=== PATIENT | female | born 1940 | race Caucasian/White ===

== ENCOUNTER 2017-04-21 09:29 | Day surgery (SDC) | payer MEDICARE ==
[~2017-04-21 09:29] MED LIST: ACEASPCAF PO; ACET500 PO; ACETAMINOPHEN500 MG PO; ALBU8HFA2 INH; ALBU90OI INH; AMLO5 PO; ASPI325 PO; ATOR10; ATOR10 PO; BISA5EC PO; BUDEPRION; CALCA500CH PO; CEPH500 PO; CHOL10002 PO; CIPR250 PO; CITA20 PO; CONEST.625; CYAN1000 PO; Dazidox10 MG; ESTR25VT PV; EYE VITAMIN; Excedrin Extra1 EACH PO; FAMOTIDINE; FURO40 PO; GABA300 PO; GLUCHON PO; Glucosamine &1 EACH PO; HYDACE5 PO; HYDR10 PO; HYDROXYZ; LANS30EC PO; LASIX; LISI20; LISI20 PO; LISI5 PO; LISINOPRIL; LOPE2C; LUTEIN-ZEAXANT1 EACH PO; MELA3 PO; META400; METH10; METHADONE; METO50 PO; MONT10T PO; MORP15ER PO; MORP30 PO; MULVITMINF PO; OMEP10ER; OMEP20ER PO; OMEP40CA12 PO; OXYACE5T PO; OXYC10ER PO; PANT40 PO; POTCHL20ER PO; PROC5; Roxicodone15 MG PO; SACC250C PO; SERT25; SPIR25 PO; SULTRIDS PO; Super B Comple150 MG PO; TEMA30 PO; TRAZ100 PO; UBID100 PO; VALD10; ZOLP10 PO; ZOLPIDEM; [UNRECOGNIZED DRUG - REMARK]
== END 2017-04-21 22:39 | disposition home or self-care (01) ==
LOC: RAD 09:29
PROVIDERS: Radiology Diagnostic Radiology
PROC: BR29YZZ Computerized Tomography (CT Scan) of Lumbar Spine using Other Contrast (ICD-10-PCS; principal; 2017-04-21 12:00)
DX: M51.16 Intervertebral disc disorders with radiculopathy, lumbar region (principal); M41.9 Scoliosis, unspecified; Z98.1 Arthrodesis status
CPT/HCPCS: 62304; 72132; Q9966

== ENCOUNTER → 2018-02-12 | Outpatient (CLI) | payer MEDICARE | END | disposition home or self-care (01) | LOC: LAB SHORT 12:58 → LAB 12:58 | DX: R19.7 Diarrhea, unspecified (principal) | CPT/HCPCS: 87015; 87045; 87046; 87177; 87205; 87209; 87899 ==

== ENCOUNTER → 2018-03-02 | Outpatient (CLI) | payer MEDICARE | END | disposition home or self-care (01) | LOC: LAB EV 03-01 08:04 | DX: K52.9 Noninfective gastroenteritis and colitis, unspecified (principal) | CPT/HCPCS: 87493 ==

== ENCOUNTER → 2018-11-21 | Outpatient (CLI) | payer MEDICARE ==
[2018-11-24 16:08] LABS: Campylobacter Sp Not Detected (NOT DETECT)
[2018-11-24 16:09] LABS: Adenovirus F 40/41 Not Detected (NOT DETECT); Astrovirus Not Detected (NOT DETECT); Cryptosporidium Not Detected (NOT DETECT); Cyclospora Cayetanensis Not Detected (NOT DETECT); E. Coli O157 Not Detected (NOT DETECT); Entamoeba Histolytica Not Detected (NOT DETECT); Enteroaggregative E. coli-EAEC Not Detected (NOT DETECT); Enteropathogenic E. coli-EPEC Not Detected (NOT DETECT); Enterotoxigenic E. coli-ETEC Not Detected (NOT DETECT); Giardia Lamblia Not Detected (NOT DETECT); Norovirus GI/GII Not Detected (NOT DETECT); Plesiomonas Shigelloides Not Detected (NOT DETECT); Rotavirus A Not Detected (NOT DETECT); Salmonella Sp Not Detected (NOT DETECT); Sapovirus Not Detected (NOT DETECT); Shiga Toxin-prod E. coli-STEC Not Detected (NOT DETECT); Shigella/Enteroin E. coli-EIEC Not Detected (NOT DETECT); Vibrio Cholerae Not Detected (NOT DETECT); Vibrio Sp Not Detected (NOT DETECT); Yersinia Enterocolitica Not Detected (NOT DETECT)
== END | disposition home or self-care (01) ==
LOC: LAB EV 20:35
PROVIDERS: Internal Medicine
DX: K52.9 Noninfective gastroenteritis and colitis, unspecified (principal)
CPT/HCPCS: 0097U

== ENCOUNTER 2023-01-25 12:40 | Day surgery (SDC) | payer MEDICARE ==
[~2023-01-25] VITALS: Ht 157.5 cm; Wt 73.6 kg
[~2023-01-25 12:40] MED LIST changes: +BIOTIN PLUS 5,1 EACH PO; +BUPR150ER PO; +CALCIUM 500-VI1 EAC4 PO; +CENTRUM SILVER1 EAC2; -CHOL10002 PO; +CIDAFLEX TABLE1 EAC1 PO; +EXTRA PAIN REL1 EAC2 PO; +FURO40; -Glucosamine &1 EACH PO; +MAGN84 PO; +MORPHINE ER PO; +MS CONTIN15 MG PO; +NIGHT TIME PAI1 EAC1 PO; +POTASSIUM99 M3 PO; +PROM25 PO; -Roxicodone15 MG PO; +THERA-D2000 UNIT PO; +Vitamin B Comple1 EA PO; +Vitamin B-Comp1 EACH PO; +Vitamin C100 MG PO; +ZOLP6.25 PO; +ZYLOPRIM100 M1 PO
--- NOTE | 2023-01-25 13:16 | NUR ---
01/25/23 1316 Jaimee Gonzalez PT HAS 2 POCKET KNIVES. CURRENTLY LOCKED UP ON UNIT VIA BABY STROLLER RENTAL CLERK NURSE DAMASO
[2023-01-25 14:05] VITALS: BP 105/81
== END 2023-01-25 14:23 | disposition home or self-care (01) ==
LOC: ORSCSDS 12:40
PROVIDERS: Student in an Organized Health Care Education/Training Program
PROC: 08RJ3JZ Replacement of Right Lens with Synthetic Substitute, Percutaneous Approach (ICD-10-PCS; principal; 2023-01-25 14:30)
DX: H25.13 Age-related nuclear cataract, bilateral (principal); J45.909 Unspecified asthma, uncomplicated; I50.9 Heart failure, unspecified; E78.5 Hyperlipidemia, unspecified; K21.9 Gastro-esophageal reflux disease without esophagitis; F32.A Depression, unspecified; G47.33 Obstructive sleep apnea (adult) (pediatric); I12.9 Hypertensive chronic kidney disease with stage 1 through stage 4 chronic kidney disease, or unspecified chronic kidney disease; N18.30 Chronic kidney disease, stage 3 unspecified; Z79.899 Other long term (current) drug therapy; Z79.82 Long term (current) use of aspirin
CPT/HCPCS: J2250; J3010; J7040; V2632

== ENCOUNTER 2023-02-01 10:43 | Day surgery (SDC) | payer MEDICARE ==
[~2023-02-01] VITALS: Wt 73.6 kg
[2023-02-01 12:42] VITALS: BP 143/73
--- NOTE | 2023-02-01 12:43 | NUR ---
02/01/23 1243 Alvino Rg IV REMOVED INTACT. SITE WNL.
== END 2023-02-01 12:54 | disposition home or self-care (01) ==
LOC: ORSCSDS 10:43
PROVIDERS: Student in an Organized Health Care Education/Training Program
PROC: 08RK3JZ Replacement of Left Lens with Synthetic Substitute, Percutaneous Approach (ICD-10-PCS; principal; 2023-02-01 12:30)
DX: H25.12 Age-related nuclear cataract, left eye (principal); Z96.1 Presence of intraocular lens; I12.9 Hypertensive chronic kidney disease with stage 1 through stage 4 chronic kidney disease, or unspecified chronic kidney disease; N18.4 Chronic kidney disease, stage 4 (severe); F32.A Depression, unspecified; Z79.899 Other long term (current) drug therapy; J45.909 Unspecified asthma, uncomplicated
CPT/HCPCS: J2250; J3010; J7040; V2632

== ENCOUNTER → 2023-06-09 | Outpatient (CLI) | payer MEDICARE | END | disposition home or self-care (01) | LOC: LAB 18:39 → LAB SHORT 18:39 | DX: R30.0 Dysuria (principal) | CPT/HCPCS: 87086 ==

== ENCOUNTER → 2023-06-17 | Outpatient (CLI) | payer MEDICARE ==
[2023-06-17 17:09] LABS: Adenovirus F 40/41 Not Detected (NOT DETECT); Astrovirus Not Detected (NOT DETECT); Campylobacter Sp Not Detected (NOT DETECT); Cryptosporidium Not Detected (NOT DETECT); Cyclospora Cayetanensis Not Detected (NOT DETECT); E. Coli O157 Not Detected (NOT DETECT); Entamoeba Histolytica Not Detected (NOT DETECT); Enteroaggregative E. coli-EAEC Not Detected (NOT DETECT); Enteropathogenic E. coli-EPEC Not Detected (NOT DETECT); Enterotoxigenic E. coli-ETEC Not Detected (NOT DETECT); Giardia Lamblia Not Detected (NOT DETECT); Norovirus GI/GII Not Detected (NOT DETECT); Plesiomonas Shigelloides Not Detected (NOT DETECT); Rotavirus A Not Detected (NOT DETECT); Salmonella Sp Not Detected (NOT DETECT); Sapovirus Not Detected (NOT DETECT); Shiga Toxin-prod E. coli-STEC Not Detected (NOT DETECT); Shigella/Enteroin E. coli-EIEC Not Detected (NOT DETECT); Vibrio Cholerae Not Detected (NOT DETECT); Vibrio Sp Not Detected (NOT DETECT); Yersinia Enterocolitica Not Detected (NOT DETECT)
[2023-06-21 12:07] LABS: CALPROTECTIN,FECAL 26 ug/g (<=49)
[2023-06-21 12:12] LABS: PANCREATIC ELASTASE,FECAL 198 ug/g (>=100)
== END | disposition home or self-care (01) ==
LOC: LAB SHORT 14:36 → LAB 14:36
PROVIDERS: Physician Assistant Medical
DX: K52.9 Noninfective gastroenteritis and colitis, unspecified (principal)
CPT/HCPCS: 82653; 83993; 87507

== ENCOUNTER 2023-08-17 10:28 | Inpatient (IN) | payer MEDICARE ==
[~2023-08-17] VITALS: Ht 157.5 cm; Wt 71.9 kg
[~2023-08-17 10:28] MED LIST changes: +FURO20 PO; -FURO40
[2023-08-17] MEDS ORDERED: PANTOPRAZOLE SO40 M2 PO (10:47)
[2023-08-17] MEDS ORDERED: ZOLOFT10013 PO (10:47)
[2023-08-17 11:20] LABS: BASOPHILS ABSOLUTE AUTO 0.01 K/mm3 (0.00-0.23); BASOPHILS PERCENT AUTO 0 % (0-2); EOSINOPHILS ABSOLUTE AUTO 0.04 K/mm3 (0.00-0.68); EOSINOPHILS PERCENT AUTO 1 % (0-6); Hematocrit 35.5 % (33.0-51.0); Hemoglobin 12.1 g/dL (11.5-16.0); IMMATURE GRAN ABSOLUTE AUTO 0.03 K/mm3 (0.00-0.10); IMMATURE GRAN PERCENT AUTO 1 % (0-1); LYMPHOCYTES PERCENT AUTO 15 % (21-46); MONOCYTES ABSOLUTE AUTO 0.29 K/mm3 (0.16-1.47); MONOCYTES PERCENT AUTO 4 % (4-13); Mean Corpuscular HGB 27.1 pg (26.0-34.0); Mean Corpuscular HGB Conc 34.1 g/dL (31.5-36.5); Mean Corpuscular Volume 79 fL (80-100); Mean Platelet Volume 10.2 fL (9.1-12.4); NEUTROPHILS PERCENT AUTO 79 % (41-73); Platelet Count 168 K/mm3 (150-400); RDW Coefficient Variation 13.7 % (11.7-14.2); RDW Standard Deviation 39.7 fL (35.1-46.3); Red Blood Cell Count 4.47 M/mm3 (3.80-5.20); White Blood Cell Count 6.57 K/mm3 (4.00-11.30)
[2023-08-17 11:36] LABS: Albumin, Blood 3.2 g/dL (3.4-5.0); Albumin/Globulin Ratio 0.8 (0.8-1.8); Bilirubin, Total 0.6 mg/dL (0.1-1.0); Calcium, Blood 8.6 mg/dL (8.5-10.1); Creatinine, Blood 2.13 mg/dL (0.40-1.00); Globulin, Blood 3.9 g/dL (2.2-4.0); Potassium, Blood 2.4 mmol/L (3.5-5.5); Total Protein, Blood 7.1 g/dL (6.4-8.2)
[2023-08-17] MEDS ORDERED: NS 1,000 ML IV SCH ×2 (11:40→22:20)
[2023-08-17] MEDS ORDERED: Potassium Chloride 40 MEQ IV SCH (11:40)
[2023-08-17] MEDS ORDERED: Potassium Chloride 40 MEQ in NS 250 ML IV STA (11:42)
[2023-08-17] MEDS ORDERED: Metoclopramide HCl 5MG / ML 2ML Vial IV PRN (15:00)
[2023-08-17] MEDS ORDERED: Furosemide 40 MG Tab PO PRN (15:10)
[2023-08-17] MEDS ORDERED: Albuterol HFA200 ACT/6.7 GM INH INH PRN (15:15)
[2023-08-17 16:43] VITALS: BP 126/73
[2023-08-17] MEDS ORDERED: Acetaminophen 500MG/DP-Hydram 25MG HCL 1 Tab PO PRN (16:55)
[2023-08-17 17:19] LABS: Adenovirus F 40/41 Not Detected (NOT DETECT); Astrovirus Not Detected (NOT DETECT); Campylobacter Sp Not Detected (NOT DETECT); Cryptosporidium Not Detected (NOT DETECT); Cyclospora Cayetanensis Not Detected (NOT DETECT); E. Coli O157 Not Detected (NOT DETECT); Entamoeba Histolytica Not Detected (NOT DETECT); Enteroaggregative E. coli-EAEC Not Detected (NOT DETECT); Enteropathogenic E. coli-EPEC Detected (NOT DETECT); Enterotoxigenic E. coli-ETEC Not Detected (NOT DETECT); Giardia Lamblia Not Detected (NOT DETECT); Norovirus GI/GII Not Detected (NOT DETECT); Plesiomonas Shigelloides Not Detected (NOT DETECT); Rotavirus A Not Detected (NOT DETECT); Salmonella Sp Not Detected (NOT DETECT); Sapovirus Not Detected (NOT DETECT); Shiga Toxin-prod E. coli-STEC Not Detected (NOT DETECT); Shigella/Enteroin E. coli-EIEC Not Detected (NOT DETECT); Vibrio Cholerae Not Detected (NOT DETECT); Vibrio Sp Not Detected (NOT DETECT); Yersinia Enterocolitica Not Detected (NOT DETECT)
[2023-08-17 17:49] LABS: Albumin, Blood 3.2 g/dL (3.4-5.0); Anion Gap 10 mmol/L (3-11); Blood Urea Nitrogen 59 mg/dL (8-24); Bun/Creatinine Ratio 30.7 (12.0-20.0); CO2, Blood 26 mmol/L (21-32); Calcium, Blood 8.5 mg/dL (8.5-10.1); Chloride, Blood 103 mmol/L (98-108); Creatinine, Blood 1.92 mg/dL (0.40-1.00); Glomerular Filtration Rate 26 (60-); Glucose, Blood 114 mg/dL (70-99); Phosphorus, Blood 3.9 mg/dL (2.5-4.9); Potassium, Blood 3.2 mmol/L (3.5-5.5); Sodium, Blood 136 mmol/L (136-145)
--- NOTE | 2023-08-17 18:02 | NUR ---
ADMIT SUMMARY: PT ADMITTED TO ROOM 362 AT 1648. PT ARRIVED VIA GURNEY, A/O X 4, STANDBY ASSIST TX TO BED. PT REFUSED TO CHANGE INTO HOSPITAL GOWN. EDUCATED PT ON HOSPITAL PROTOCOL TO DO SKIN CHECK FOR WOUNDS, RASHES, SOURCES OF INFECTION. PT CONTINUED TO REFUSE TO CHANGE OUT OF HER CLOTHING SHE ARRIVED IN FOR A SKIN CHECK. PT EDUCATED ON ADMIT PROCESS, FALL PRECAUTIONS, MEDICAL FLOOR STANDARD CARE, CALL LIGHT, BED ALARM. PT C/O BEING HUNGRY. DISCUSSED PRESCRIBED DIET OF CLEAR LIQUIDS AND SHE AGREED TO DIET ORDER AND SHE WAS GIVEN SOME JELLO AND ICE WATER. WHEN DISCUSSING HOME MEDICATIONS. PT REPORTED SHE TAKES POTASSIUM CITRATE NEEDED WHEN SHE TAKES HER PRN LASIX. I CLARIFIED WITH PT AND ASKED HER WHO PRESCRIBED POTASSIUM CITRATE AND SHE STATED "NO ONE I GOT IT AT THE STORE." I FURTHER CLARIFIED AND ASKED WHAT IT LOOKED LIKE AND SHE STATED "IT COMES IN A GREAT BIG BOTTLE." PT EDUCATED ON DIFFERENCES OF POTASSIUM FORMS AND ADVISED HER TO STOP TAKING POTASSIUM CITRATE. PT V/U. MED RECONCILIATION COMPLETED. PT HAD IV POTASSIUM RESTARTED IT WAS STOPPED ON TRANSFER TO MEDICAL FLOOR. IT IS RUNNING SLOW DUE TO IT BURNING HER ARM. RATE IS AT 30 ML PER HOUR. WHEN LAB CAME UP THEY NEEDED TO DRAW FOR SEND OUT LABS THAT GET PICKED UP AT 1830. POTASSIUM CAME BACK AT 3.2 BUT PT STILL GETTING POTASSIUM INFUSION WITH APPROX 67 MLS STILL NEEDING TO INFUSE. NEXT DRAW WILL BE AT 2300.
[2023-08-17] MEDS ORDERED: ZOLPIDEM TART6.25 MG PO (19:23)
--- NOTE | 2023-08-17 19:26 | NUR ---
DR. HAWLEY NOTIFIED PT STOOL SAMPLE TESTED POSITIVE FOR E.COLI. NO NEW ORDERS.
[2023-08-17] MEDS ORDERED: PEPCID40 MG PO (19:27)
[2023-08-17 20:10] VITALS: BP 141/63
[2023-08-17] MEDS ORDERED: ACET500 PO (20:30)
[2023-08-17] MEDS ORDERED: Gabapentin 100 MG Cap PO SCH (21:00)
[2023-08-17] MEDS ORDERED: Ketorolac Tromethamine 15mg Vial IV ONE (21:00)
[2023-08-17] MEDS ORDERED: Lactobacil 2-S.Thermo-Bifido 1 1 Cap PO SCH (21:00)
[2023-08-17] MEDS ORDERED: Azithromycin 500 MG in NS 250 ML IV SCH (21:00)
[2023-08-17] MEDS ORDERED: Pantoprazole Sodium 40 MG Tab PO SCH (21:00)
[2023-08-17] MEDS ORDERED: Acetaminophen 500 MG Tab PO PRN (21:00)
[2023-08-17 23:46] LABS: Albumin, Blood 2.9 g/dL (3.4-5.0); Anion Gap 10 mmol/L (3-11); Blood Urea Nitrogen 51 mg/dL (8-24); Bun/Creatinine Ratio 31.9 (12.0-20.0); CO2, Blood 25 mmol/L (21-32); Calcium, Blood 8.1 mg/dL (8.5-10.1); Chloride, Blood 105 mmol/L (98-108); Glomerular Filtration Rate 32 (60-); Glucose, Blood 118 mg/dL (70-99); Phosphorus, Blood 3.5 mg/dL (2.5-4.9); Potassium, Blood 2.6 mmol/L (3.5-5.5); Sodium, Blood 137 mmol/L (136-145)
--- NOTE | 2023-08-18 00:50 | NUR ---
CALLED HOSPITALIST AND REPORTED POTASSIUM OF 2.6. HOSPITALIST STATED WILL REVIEW CHART AND PLACE ORDERS.
[2023-08-18] MEDS ORDERED: Potassium Chloride 40 MEQ in NS 250 ML IV ONE (00:55)
[2023-08-18 05:09] VITALS: BP 124/68
[2023-08-18 05:56] LABS: Hematocrit 31.4 % (33.0-51.0); Hemoglobin 10.5 g/dL (11.5-16.0)
--- NOTE | 2023-08-18 05:57 | NUR ---
SHIFT SUMMARY: JER IS A&OX4. VSS, NO ACUTE EVENTS OVERNIGHT. PT DID HAVE ONE EPISODE OF DIARRHEA THIS SHIFT, DENIES ANY DIFFICULTY WITH URINATION. IV O L AC PATENT. SHE IS TOLERATING CLEAR LIQUIDS WELL. PT STATES SHE IS HOPEFUL SHE WILL BE DISCHARGED HOME TODAY. SHE IS A ONE-PERSON ASSIST TO THE BATHROOM, PT HAS DECLINED TO USE HER CANE THAT SHE BROUGHT FROM HOME AND PREFERS TO FURNITURE SURF. SHE IS LYING IN BED WITH THE CALL LIGHT IN REACH. WILL GIVE REPORT TO DAY SHIFT RN.
[2023-08-18 06:18] LABS: Magnesium, Blood 2.2 mg/dL (1.6-2.4); Thyroid Stimulating Hormone 0.902 uIU/mL (0.360-4.800); Uric Acid, Blood 9.3 mg/dL (2.6-6.0)
[2023-08-18 06:19] LABS: Albumin, Blood 2.9 g/dL (3.4-5.0); Albumin/Globulin Ratio 0.9 (0.8-1.8); Bilirubin, Total 0.3 mg/dL (0.1-1.0); Bun/Creatinine Ratio 30.3 (12.0-20.0); Calcium, Blood 8.3 mg/dL (8.5-10.1); Creatinine, Blood 1.52 mg/dL (0.40-1.00); Globulin, Blood 3.2 g/dL (2.2-4.0); Phosphorus, Blood 3.5 mg/dL (2.5-4.9); Potassium, Blood 3.3 mmol/L (3.5-5.5); Total Protein, Blood 6.1 g/dL (6.4-8.2)
[2023-08-18 07:38] VITALS: BP 142/76
[2023-08-18] MEDS ORDERED: Montelukast Sodium 10 MG Tab PO SCH (09:00)
[2023-08-18] MEDS ORDERED: Spironolactone 25 MG Tab PO SCH (09:00)
[2023-08-18] MEDS ORDERED: Allopurinol 100 MG Tab PO SCH (09:00)
[2023-08-18] MEDS ORDERED: Sertraline HCl 100 MG Tab PO SCH (09:00)
[2023-08-18] MEDS ORDERED: Lisinopril 5 MG Tab PO SCH (09:00)
[2023-08-18] MEDS ORDERED: Heparin Sodium,Porcine 5,000 UNIT/0.5 ML SDV SC SCH (09:00)
[2023-08-18] MEDS ORDERED: Potassium Chloride 20 MEQ TabCR PO ONE (09:00)
[2023-08-18] MEDS ORDERED: NS 1,000 ML IV SCH (10:20)
[2023-08-18 11:40] LABS: Albumin, Blood 3.1 g/dL (3.4-5.0); Anion Gap 10 mmol/L (3-11); Blood Urea Nitrogen 38 mg/dL (8-24); CO2, Blood 23 mmol/L (21-32); Calcium, Blood 8.4 mg/dL (8.5-10.1); Chloride, Blood 112 mmol/L (98-108); Creatinine, Blood 1.31 mg/dL (0.40-1.00); Glomerular Filtration Rate 41 (60-); Glucose, Blood 116 mg/dL (70-99); Phosphorus, Blood 2.5 mg/dL (2.5-4.9); Potassium, Blood 3.2 mmol/L (3.5-5.5); Sodium, Blood 142 mmol/L (136-145)
[2023-08-18] MEDS ORDERED: Potassium Chl 20MEQ/Water100ML 100 ML IV STA (14:32)
[2023-08-18 15:06] VITALS: BP 122/68
--- NOTE | 2023-08-18 16:48 | NUR ---
SHIFT SUMMARY Pt remains A&Ox3 this shift. VSS. Denies pain. Resp even nonlabored on RA. Loose stools noted this shift. IV K+ infusing for repeat low K+ via power glide LUE. No acute events. Pain and safety maintained. Will continue to monitor and document any changes.
[2023-08-18 17:28] LABS: Albumin, Blood 3.2 g/dL (3.4-5.0); Anion Gap 8 mmol/L (3-11); Blood Urea Nitrogen 33 mg/dL (8-24); Bun/Creatinine Ratio 27.3 (12.0-20.0); CO2, Blood 23 mmol/L (21-32); Calcium, Blood 8.4 mg/dL (8.5-10.1); Chloride, Blood 112 mmol/L (98-108); Creatinine, Blood 1.21 mg/dL (0.40-1.00); Glomerular Filtration Rate 45 (60-); Glucose, Blood 84 mg/dL (70-99); Phosphorus, Blood 2.5 mg/dL (2.5-4.9); Potassium, Blood 3.4 mmol/L (3.5-5.5); Sodium, Blood 140 mmol/L (136-145)
[2023-08-19 05:11] VITALS: BP 163/73
[2023-08-19 05:39] LABS: Hematocrit 30.6 % (33.0-51.0); Hemoglobin 9.8 g/dL (11.5-16.0)
[2023-08-19 06:02] LABS: Albumin, Blood 2.7 g/dL (3.4-5.0); Anion Gap 7 mmol/L (3-11); Blood Urea Nitrogen 23 mg/dL (8-24); Bun/Creatinine Ratio 21.5 (12.0-20.0); CO2, Blood 23 mmol/L (21-32); Calcium, Blood 8.4 mg/dL (8.5-10.1); Chloride, Blood 120 mmol/L (98-108); Creatinine, Blood 1.07 mg/dL (0.40-1.00); Glomerular Filtration Rate 52 (60-); Glucose, Blood 107 mg/dL (70-99); Phosphorus, Blood 2.8 mg/dL (2.5-4.9); Potassium, Blood 3.7 mmol/L (3.5-5.5); Sodium, Blood 146 mmol/L (136-145)
[2023-08-19] MEDS ORDERED: NS 1,000 ML IV SCH (06:05)
--- NOTE | 2023-08-19 06:12 | NUR ---
191 Assumed care of pt, bedside report completed. Shift plan of care reviewed with pt and all questions answered. Pt with uneventful shift tonight, appears to have slept well. Pt happy for the rest as she has not slept well in several days per report. This AM labs show improved K at 3.7, reported to pt and she is pleased. Pt up tp BR with SBA, david well. Second liter of IVF almost completed. WIll saline lock IV after this liter finished being infused per MD order. Please see full assessment for additional details. Pt hoping for DC today. No additional complaints or concerns at this time, will continue to monitor.
[2023-08-19 07:36] VITALS: BP 140/79
[2023-08-19] MEDS ORDERED: Potassium Chloride 20 MEQ TabCR PO SCH (08:00)
[2023-08-19] MEDS ORDERED: D5W-1/2NS 1,000 ML IV SCH (08:25)
[2023-08-19] MEDS ORDERED: Spironolactone 25 MG Tab PO SCH (09:00)
[2023-08-19] MEDS ORDERED: Banana Flakes/Tos 1 EA Powder Pack PO SCH (11:25)
[2023-08-19] MEDS ORDERED: Gabapentin 300 MG Cap PO SCH (14:00)
[2023-08-19 14:15] LABS: BASOPHILS ABSOLUTE AUTO 0.01 K/mm3 (0.00-0.23); BASOPHILS PERCENT AUTO 0 % (0-2); EOSINOPHILS ABSOLUTE AUTO 0.05 K/mm3 (0.00-0.68); EOSINOPHILS PERCENT AUTO 2 % (0-6); Hematocrit 31.1 % (33.0-51.0); IMMATURE GRAN ABSOLUTE AUTO 0.01 K/mm3 (0.00-0.10); IMMATURE GRAN PERCENT AUTO 0 % (0-1); LYMPHOCYTES ABSOLUTE AUTO 0.68 K/mm3 (0.84-5.20); LYMPHOCYTES PERCENT AUTO 21 % (21-46); MONOCYTES ABSOLUTE AUTO 0.15 K/mm3 (0.16-1.47); MONOCYTES PERCENT AUTO 5 % (4-13); Mean Corpuscular HGB Conc 32.2 g/dL (31.5-36.5); Mean Platelet Volume 9.6 fL (9.1-12.4); NEUTROPHILS ABSOLUTE AUTO 2.35 K/mm3 (1.96-9.15); NEUTROPHILS PERCENT AUTO 72 % (41-73); Platelet Count 116 K/mm3 (150-400); RDW Coefficient Variation 14.1 % (11.7-14.2); RDW Standard Deviation 43.7 fL (35.1-46.3); White Blood Cell Count 3.25 K/mm3 (4.00-11.30)
[2023-08-19 14:19] LABS: Mean Corpuscular Volume 84 fL (80-100)
[2023-08-19 14:22] LABS: Albumin, Blood 2.8 g/dL (3.4-5.0); Albumin/Globulin Ratio 0.9 (0.8-1.8); Bilirubin, Total 0.2 mg/dL (0.1-1.0); Bun/Creatinine Ratio 18.7 (12.0-20.0); Calcium, Blood 8.1 mg/dL (8.5-10.1); Creatinine, Blood 0.96 mg/dL (0.40-1.00); Globulin, Blood 3.1 g/dL (2.2-4.0); Potassium, Blood 3.5 mmol/L (3.5-5.5); Total Protein, Blood 5.9 g/dL (6.4-8.2)
[2023-08-19 15:31] VITALS: BP 136/81
[2023-08-19] MEDS ORDERED: Darbepoetin Alfa in Polysorbat 25 MCG/0.42 ML Syringe SC SCH (16:00)
--- NOTE | 2023-08-19 17:49 | NUR ---
NO ACUTE CHANGES THIS SHIFT. PT CONTINUES TO HAVE WATERY DIARRHEA. ABLE TO MAKE NEEDS KNOWN. PLAN TO DISCHARGE TOMORROW PENDING LAB RESULTS. INDEPENDENT IN THE ROOM, PER DR. HERNANDEZ. STOP FLUIDS AT 1200 TODAY. PT PO INTAKE AT 100% ON CLEAR LIQUID DIET.
[2023-08-19 19:28] VITALS: BP 159/76
[2023-08-20 04:59] VITALS: BP 139/64
[2023-08-20 06:42] LABS: BASOPHILS ABSOLUTE AUTO 0.01 K/mm3 (0.00-0.23); BASOPHILS PERCENT AUTO 0 % (0-2); EOSINOPHILS ABSOLUTE AUTO 0.07 K/mm3 (0.00-0.68); EOSINOPHILS PERCENT AUTO 2 % (0-6); Hematocrit 30.4 % (33.0-51.0); Hemoglobin 9.8 g/dL (11.5-16.0); IMMATURE GRAN ABSOLUTE AUTO 0.01 K/mm3 (0.00-0.10); IMMATURE GRAN PERCENT AUTO 0 % (0-1); LYMPHOCYTES PERCENT AUTO 24 % (21-46); MONOCYTES ABSOLUTE AUTO 0.16 K/mm3 (0.16-1.47); MONOCYTES PERCENT AUTO 5 % (4-13); Mean Corpuscular HGB Conc 32.2 g/dL (31.5-36.5); Mean Corpuscular Volume 84 fL (80-100); Mean Platelet Volume 9.7 fL (9.1-12.4); NEUTROPHILS ABSOLUTE AUTO 2.28 K/mm3 (1.96-9.15); NEUTROPHILS PERCENT AUTO 69 % (41-73); Platelet Count 117 K/mm3 (150-400); RDW Coefficient Variation 14.2 % (11.7-14.2); RDW Standard Deviation 43.3 fL (35.1-46.3); Red Blood Cell Count 3.63 M/mm3 (3.80-5.20); White Blood Cell Count 3.33 K/mm3 (4.00-11.30)
[2023-08-20 07:05] LABS: Albumin, Blood 2.8 g/dL (3.4-5.0); Albumin/Globulin Ratio 0.9 (0.8-1.8); Bilirubin, Total 0.2 mg/dL (0.1-1.0); Bun/Creatinine Ratio 13.3 (12.0-20.0); Calcium, Blood 8.5 mg/dL (8.5-10.1); Creatinine, Blood 0.98 mg/dL (0.40-1.00); Globulin, Blood 3.1 g/dL (2.2-4.0); Phosphorus, Blood 2.2 mg/dL (2.5-4.9); Potassium, Blood 3.5 mmol/L (3.5-5.5); Total Protein, Blood 5.9 g/dL (6.4-8.2)
[2023-08-20 07:36] VITALS: BP 143/96
[2023-08-20] MEDS ORDERED: Dextrose 5% 1,000 ML IV SCH (07:40)
[2023-08-20 13:21] LABS: C DIFFICILE DNA NEGATIVE (Negative)
[2023-08-20 14:28] VITALS: BP 144/71
[2023-08-20] MEDS ORDERED: D5W-1/2NS KCl 10mEq 1,000 ML IV SCH (18:50)
[2023-08-20 19:56] VITALS: BP 132/64
[2023-08-21 04:50] VITALS: BP 144/71
[2023-08-21] MEDS ORDERED: NS 250 ML IV PRN (05:05)
[2023-08-21 05:56] LABS: BASOPHILS ABSOLUTE AUTO 0.02 K/mm3 (0.00-0.23); BASOPHILS PERCENT AUTO 1 % (0-2); EOSINOPHILS ABSOLUTE AUTO 0.07 K/mm3 (0.00-0.68); EOSINOPHILS PERCENT AUTO 2 % (0-6); Hematocrit 30.3 % (33.0-51.0); Hemoglobin 9.9 g/dL (11.5-16.0); IMMATURE GRAN ABSOLUTE AUTO 0.01 K/mm3 (0.00-0.10); IMMATURE GRAN PERCENT AUTO 0 % (0-1); LYMPHOCYTES ABSOLUTE AUTO 0.99 K/mm3 (0.84-5.20); LYMPHOCYTES PERCENT AUTO 30 % (21-46); MONOCYTES ABSOLUTE AUTO 0.15 K/mm3 (0.16-1.47); MONOCYTES PERCENT AUTO 5 % (4-13); Mean Corpuscular HGB Conc 32.7 g/dL (31.5-36.5); Mean Corpuscular Volume 83 fL (80-100); Mean Platelet Volume 9.4 fL (9.1-12.4); NEUTROPHILS ABSOLUTE AUTO 2.11 K/mm3 (1.96-9.15); NEUTROPHILS PERCENT AUTO 63 % (41-73); Platelet Count 123 K/mm3 (150-400); RDW Coefficient Variation 14.3 % (11.7-14.2); RDW Standard Deviation 43.1 fL (35.1-46.3); Red Blood Cell Count 3.66 M/mm3 (3.80-5.20); White Blood Cell Count 3.35 K/mm3 (4.00-11.30)
--- NOTE | 2023-08-21 06:05 | NUR ---
SHIFT SUMMARY NO ACUTE EVENTS DURING THIS SHIFT. PT.REPORTS FOUR TO FIVE LOOSE STOOLS DURING THIS SHIFT. PT. STATES NEEDS FIBER TO START HARDENING THE STOOLS OR WILL GO HOME AND GET IT OTC. INFUSING SECOND BAG OF THE ORDERED IV FLUIDS. WILL HANDOFF TO THE INCOMING SHIFT NURSE, CALL LIGHT IN REACH.
[2023-08-21 06:26] LABS: Albumin, Blood 2.9 g/dL (3.4-5.0); Bilirubin, Total 0.3 mg/dL (0.1-1.0); Bun/Creatinine Ratio 10.8 (12.0-20.0); Calcium, Blood 8.5 mg/dL (8.5-10.1); Creatinine, Blood 1.02 mg/dL (0.40-1.00); Phosphorus, Blood 3.1 mg/dL (2.5-4.9); Potassium, Blood 3.3 mmol/L (3.5-5.5); Total Protein, Blood 5.9 g/dL (6.4-8.2)
--- NOTE | 2023-08-21 06:32 | NUR ---
[facility] LAB VALUE RECEIVED AT 0632: MG 1.[address]NEW ALONZO.
[2023-08-21] MEDS ORDERED: Potassium Chloride 20 MEQ TabCR PO ONE ×2 (07:05→12:00)
[2023-08-21] MEDS ORDERED: Magnesium Sulf 2 GM/Water 50ML 50 ML IV ONE (07:15)
[2023-08-21 07:29] VITALS: BP 155/71
[2023-08-21 08:15] LABS: ALDOSTERONE 19.6 ng/dL; ALDOSTERONE/RENINACTIVITY CALC 2.2 ratio (<=25.0); RENIN ACTIVITY 9.1 ng/mL/hr
[2023-08-21] MEDS ORDERED: SPIR25 PO (13:42)
[2023-08-21] MEDS ORDERED: MIDO5 PO (13:43)
[2023-08-21] MEDS ORDERED: MAGNESIUM OXID500 MG PO (13:45)
[2023-08-21] MEDS ORDERED: POTCHL20ER PO (13:45)
[2023-08-21] MEDS ORDERED: BANATROL PLUS1 EAC1 PO (13:45)
--- NOTE | 2023-08-21 15:48 | NUR ---
DISCHARGE SUMMARY PATIENT DISCHARGED THIS SHIFT, IV REMOVED WITHOUT COMPLICATIONS. DISCHARGE PACKET GIVEN AND REVIEWED, QUESTIONS ANSWERED, VERBALIZED UNDERSTANDING. MEDS FAXED TO [facility]. NEIGHBOR TO DRIVE PATIENT HOME.
== END 2023-08-21 14:30 | disposition home health service (06) | DRG 683 ==
LOC: ER 10:28 → MEDS 10:29 → ENPENDDIS 08-19 09:44 → MEDS 08-21 14:30
PROVIDERS: Emergency Medicine; Internal Medicine; Internal Medicine Nephrology; ADMIT Family Medicine
DX: N17.9 Acute kidney failure, unspecified (principal); A09 Infectious gastroenteritis and colitis, unspecified; I13.0 Hypertensive heart and chronic kidney disease with heart failure and stage 1 through stage 4 chronic kidney disease, or unspecified chronic kidney disease; I50.32 Chronic diastolic (congestive) heart failure; D61.818 Other pancytopenia; E87.1 Hypo-osmolality and hyponatremia; E87.0 Hyperosmolality and hypernatremia; K58.0 Irritable bowel syndrome with diarrhea; E87.6 Hypokalemia; I35.0 Nonrheumatic aortic (valve) stenosis; E83.42 Hypomagnesemia; J45.909 Unspecified asthma, uncomplicated; G47.00 Insomnia, unspecified; F32.A Depression, unspecified; B96.20 Unspecified Escherichia coli [E. coli] as the cause of diseases classified elsewhere; N18.30 Chronic kidney disease, stage 3 unspecified; K21.9 Gastro-esophageal reflux disease without esophagitis; Z90.710 Acquired absence of both cervix and uterus; Z98.890 Other specified postprocedural states; Z79.811 Long term (current) use of aromatase inhibitors; Z79.899 Other long term (current) drug therapy; Z88.8 Allergy status to other drugs, medicaments and biological substances; D63.1 Anemia in chronic kidney disease; M54.9 Dorsalgia, unspecified; G89.29 Other chronic pain; Z90.49 Acquired absence of other specified parts of digestive tract; Z96.653 Presence of artificial knee joint, bilateral; Z79.891 Long term (current) use of opiate analgesic
CPT/HCPCS: 36415; 74177; 80053; 80069; 82088; 82533; 83690; 83735; 84100; 84244; 84443; 84550; 85014; 85018; 85025; 87493; 87507; 94760; 96361; 96367; 96372; 96376; 97110; 97116; 97161; 97165; 97530; A9270; C1751; G0378; J0456; J0881; J1644; J3475; J3480; J7030; J7042; J7050; J7070; Q9967

== ENCOUNTER 2023-11-29 09:26 | Emergency (ER) | payer MEDICARE ==
[~2023-11-29] VITALS: Ht 157.5 cm; Wt 74.8 kg
[~2023-11-29 09:26] MED LIST changes: +BANATROL PLUS1 EAC1 PO; +MAGNESIUM OXID500 MG PO; +MIDO5 PO; +PANTOPRAZOLE SO40 M2 PO; +PEPCID40 MG PO; +ZOLOFT10013 PO; +ZOLPIDEM TART6.25 MG PO
[2023-11-29 10:20] LABS: BASOPHILS ABSOLUTE AUTO 0.02 K/mm3 (0.00-0.23); BASOPHILS PERCENT AUTO 0 % (0-2); EOSINOPHILS ABSOLUTE AUTO 0.03 K/mm3 (0.00-0.68); EOSINOPHILS PERCENT AUTO 1 % (0-6); Hematocrit 38.2 % (33.0-51.0); Hemoglobin 12.4 g/dL (11.5-16.0); IMMATURE GRAN ABSOLUTE AUTO 0.01 K/mm3 (0.00-0.10); IMMATURE GRAN PERCENT AUTO 0 % (0-1); LYMPHOCYTES ABSOLUTE AUTO 0.85 K/mm3 (0.84-5.20); LYMPHOCYTES PERCENT AUTO 17 % (21-46); MONOCYTES ABSOLUTE AUTO 0.17 K/mm3 (0.16-1.47); MONOCYTES PERCENT AUTO 3 % (4-13); Mean Corpuscular HGB 26.9 pg (26.0-34.0); Mean Corpuscular HGB Conc 32.5 g/dL (31.5-36.5); Mean Corpuscular Volume 83 fL (80-100); NEUTROPHILS ABSOLUTE AUTO 3.89 K/mm3 (1.96-9.15); NEUTROPHILS PERCENT AUTO 78 % (41-73); RDW Coefficient Variation 14.1 % (11.7-14.2); RDW Standard Deviation 42.2 fL (35.1-46.3); Red Blood Cell Count 4.61 M/mm3 (3.80-5.20); White Blood Cell Count 4.97 K/mm3 (4.00-11.30)
[2023-11-29 10:45] LABS: Mean Platelet Volume 10.5 fL (9.1-12.4)
[2023-11-29 10:48] LABS: Albumin, Blood 3.6 g/dL (3.4-5.0); Albumin/Globulin Ratio 0.9 (0.8-1.8); Bilirubin, Total 0.5 mg/dL (0.1-1.0); Bun/Creatinine Ratio 8.7 (12.0-20.0); Calcium, Blood 9.9 mg/dL (8.5-10.1); Creatinine, Blood 0.81 mg/dL (0.40-1.00); Potassium, Blood 3.3 mmol/L (3.5-5.5); Total Protein, Blood 7.6 g/dL (6.4-8.2)
[2023-11-29] MEDS ORDERED: NS 1,000 ML IV SCH ×2 (11:05→14:10)
[2023-11-29 12:01] LABS: Influenza A, PCR NEGATIVE (NEGATIVE); Influenza B, PCR NEGATIVE (NEGATIVE); Resp Syncytial Virus, PCR NEGATIVE (NEGATIVE); SARS-Cov-2 (COVID-19) PCR, MMC NEGATIVE (NEGATIVE)
[2023-11-29] MEDS ORDERED: Lisinopril 5 MG Tab PO ONE (12:30)
[2023-11-29 14:15] VITALS: BP 154/79
[2024-01-02] MEDS ORDERED: OMEP20ER (13:13)
== END 2023-11-29 16:38 | disposition home or self-care (01) ==
LOC: ER 09:26
PROVIDERS: Physician Assistant
DX: R07.89 Other chest pain (principal); K52.9 Noninfective gastroenteritis and colitis, unspecified; E86.0 Dehydration; K21.9 Gastro-esophageal reflux disease without esophagitis; J45.909 Unspecified asthma, uncomplicated; I13.0 Hypertensive heart and chronic kidney disease with heart failure and stage 1 through stage 4 chronic kidney disease, or unspecified chronic kidney disease; I50.30 Unspecified diastolic (congestive) heart failure; N18.30 Chronic kidney disease, stage 3 unspecified; Z79.899 Other long term (current) drug therapy; Z88.8 Allergy status to other drugs, medicaments and biological substances
CPT/HCPCS: 0241U; 71046; 80053; 83605; 83735; 83880; 84484; 85025; 93005; 93010; 96360; 96361; 99285-25; A9270; J7030

== ENCOUNTER → 2024-02-20 | Outpatient (CLI) | payer MEDICARE ==
[~2024-02-20] MED LIST changes: +OMEP20ER
[2024-02-20 17:25] LABS: Appearance, Urine Clear (Clear); Bilirubin, Urine Neg (Neg); Blood, Urine Neg (Neg); Color, Urine Yellow (P-Yellow); Glucose Qualitative, Urine Neg (Neg); Ketones, Urine Neg (Neg); Leukocyte Esterase, Urine Neg (Neg); Nitrite, Urine Neg (Neg); Protein, Urine Neg (Neg); Urobilinogen, Urine NORM (Normal)
== END | disposition home or self-care (01) ==
LOC: LAB 13:05 → LAB SHORT 13:05
PROVIDERS: Internal Medicine
DX: R31.29 Other microscopic hematuria (principal)
CPT/HCPCS: 81003